=== PATIENT | female | born 1975 | race Caucasian/White ===

== ENCOUNTER → 2020-07-19 | Outpatient (CLI) | payer OTHER ==
[~2020-07-19] MED LIST: NORFLEX 100 MG100 MG PO; Voltaren Gel 1% TOP
[2020-07-19 10:13] LABS: HEMOGLOBIN 13.8 gm/dl (12.3-15.3); RED BLOOD COUNT 4.75 M/UL (4.00-5.10); WHITE BLOOD COUNT 7.4 K/UL (4.5-11.0)
[2020-07-19 10:46] LABS: BUN/CREATININE RATIO 14 (0-10)
[2020-07-21 12:11] LABS: INSULIN 25.7 uIU/mL (2.6-24.9); THYROXINE (T4) 6.1 ug/dL (4.5-12.0)
== END ==
LOC: LAB 09:50
PROVIDERS: Nurse Practitioner Family
DX: K21.9 Gastro-esophageal reflux disease without esophagitis (principal); I10 Essential (primary) hypertension; E88.81 Metabolic syndrome and other insulin resistance; N95.9 Unspecified menopausal and perimenopausal disorder; R73.01 Impaired fasting glucose; E55.9 Vitamin D deficiency, unspecified; D51.9 Vitamin B12 deficiency anemia, unspecified; E03.9 Hypothyroidism, unspecified; E66.09 Other obesity due to excess calories
CPT/HCPCS: 36415; 80053; 80061; 82607; 82652; 83036; 84436; 84443; 85025